=== PATIENT | female | born 1970 | race African-American/Black ===

== ENCOUNTER → 2023-12-31 | Outpatient (CLI) | payer OTHER ==
[2024-01-01 04:06] LABS: RUBELLA AB IGG-REFLAB 5.13 index (Immune >0.99)
[2024-01-01 08:06] LABS: VARICELLA ZOSTER IGG AB TITER >4000 index (Immune >165)
[2024-01-03 06:06] LABS: QUANTIFERON+, Nil Value 0.13 IU/mL; QUANTIFERON+,Mitogen Value 6.56 IU/mL; QUANTIFERON+,TB1 Antigen Value 0.07 IU/mL; QUANTIFERON+,TB2 Antigen Value 0.06 IU/mL; QUANTIFERON, TB GOLD PLUS Negative (Negative)
== END | disposition home or self-care (01) ==
LOC: LABMN 15:15
PROVIDERS: ATTEND Internal Medicine
DX: Z02.1 Encounter for pre-employment examination (principal)
CPT/HCPCS: 86480; 86706; 86735; 86762; 86765; 86787